=== PATIENT | female | born 1985 | race Caucasian/White ===

== ENCOUNTER → 2017-02-13 | Emergency (ER) | payer BC ==
[~2017-02-13] VITALS: Ht 170.2 cm; Wt 79.9 kg
[~2017-02-13] MED LIST: BUSPAR7.5 MG PO; CLARITIN,ALAVAR10 MG PO; COLACE100 MG PO; FLEXERIL10 MG; FLEXERIL10 MG PO; LORTAB 5-325 M1 EACH PO; MACROBID100 MG PO; MONTELUKAST SOD10 MG PO; MOTRIN800 MG; Motrin PO; NAPROSYN500 MG PO; NAPROXEN500 MG PO; OMEPRAZOLE40 M1 PO; PERCOCET 5/31 TABLET PO; PREDNISONE10 M1; Percocet 5/325,Endoc PO; TYLENOL EXTRA500 MG PO; ULTRAM ER200 MG; VICODIN,LORT1 TABLET
[2017-02-13 14:49] LABS: HEMATOCRIT 38.1 % (36.0-46.0); MCH 28.5 PG (29.0-34.0); MCHC 32.5 G/DL (30.0-36.0); MCV 87.6 FL (83-99); MEAN PLAT.VOLUME 10.4 uM^3 (9.5-12.4); PLATELET COUNT 265 K/uL (156-360); RBC DIS.WIDTH-CV 11.9 % (11.8-14.6); RBC DIS.WIDTH-SD 38.5 % (39-53); RED BLOOD COUNT 4.35 M/uL (3.80-5.20); WHITE BLOOD COUNT 10.2 K/uL (4.1-10.2)
[2017-02-13 14:59] LABS: CHLORIDE 109 mEq/L (99-109); POTASSIUM 3.9 mEq/L (3.7-5.4); SODIUM 142 mEq/L (136-147)
[2017-02-13 15:01] LABS: GLUCOSE 114 mg/dL (70-99)
[2017-02-13 15:02] LABS: ANION GAP 10 MEQ/L (2-14)
[2017-02-13 15:05] LABS: GFR ESTIMATE (CALCULATED) > 59 mL/min/
[2017-02-13 15:06] LABS: UREA NITROGEN (BUN) 11 mg/dL (9-23)
[2017-02-13 16:40] LABS: TROP-I INTERPRETATION NEGATIVE; TROPONIN-I < 0.01 ng/mL (0.0-0.30)
[2017-02-13 17:00] VITALS: BP 141/96
== END | disposition home or self-care (01) ==
LOC: EME 13:59
DX: R55 Syncope and collapse (principal); R51 Headache; Z87.891 Personal history of nicotine dependence; Z91.040 Latex allergy status; Z88.0 Allergy status to penicillin; Z88.1 Allergy status to other antibiotic agents; Z88.8 Allergy status to other drugs, medicaments and biological substances
CPT/HCPCS: 70450; 71020; 80048; 84484; 85027; 93005; 99281; 99283

== ENCOUNTER 2017-04-15 18:47 | Emergency (ER) | payer BC ==
[~2017-04-15] VITALS: Ht 170.2 cm; Wt 79.9 kg
[2017-04-15 19:28] LABS: HEMATOCRIT 37.5 % (36.0-46.0); HEMOGLOBIN 12.4 G/DL (11.9-15.5); MCH 28.4 PG (29.0-34.0); MCHC 33.1 G/DL (30.0-36.0); MCV 85.8 FL (83-99); PLATELET COUNT 274 K/uL (156-360); RBC DIS.WIDTH-CV 12.3 % (11.8-14.6); RBC DIS.WIDTH-SD 38.7 % (39-53); RED BLOOD COUNT 4.37 M/uL (3.80-5.20); WHITE BLOOD COUNT 9.6 K/uL (4.1-10.2)
[2017-04-15 19:36] LABS: ALBUMIN 4.2 g/dL (3.2-4.8); CHLORIDE 104 mEq/L (99-109); POTASSIUM 3.8 mEq/L (3.7-5.4)
[2017-04-15 19:37] LABS: SODIUM 140 mEq/L (136-147)
[2017-04-15 19:39] LABS: GLUCOSE 91 mg/dL (70-99)
[2017-04-15 19:41] LABS: TOTAL BILIRUBIN 0.3 mg/dL (0.0-1.0)
[2017-04-15 19:42] LABS: ALKALINE PHOSPHATASE 66 IU/L (3-129); CREATININE 0.8 mg/dL (0.6-1.3); GFR ESTIMATE (CALCULATED) > 59 mL/min/
[2017-04-15 19:44] LABS: AST (GOT) 13 IU/L (2-34); UREA NITROGEN (BUN) 12 mg/dL (9-23)
[2017-04-15 19:45] LABS: ALT (GPT) 15 IU/L (3-49)
[2017-04-15 19:46] LABS: LIPASE 35 U/L (1.0-51.0)
[2017-04-15 19:52] LABS: QUANTITATIVE HCG < 4.0 MIU/ML
[2017-04-15 19:57] LABS: APPEARANCE CLEAR ((CLEAR)); BILIRUBIN NEGATIVE; BLOOD NEGATIVE; COLOR STRAW ((YELLOW)); GLUCOSE (STRIP) NEGATIVE; KETONES NEGATIVE; LEUKOCYTES NEGATIVE; NITRITE NEGATIVE; PROTEIN (STRIP) NEGATIVE; SPECIFIC GRAVITY 1.008 (1.000-1.030); UCUL ADDED? NO; UROBILINOGEN 0.2 MG/DL (0.2-1.0)
[2017-04-15] MEDS ORDERED: BENTYL20 MG PO (21:08)
[2017-04-15] MEDS ORDERED: PEPCID20 MG PO (21:08)
[2017-04-15 21:45] VITALS: BP 137/73
== END 2017-04-15 21:46 | disposition home or self-care (01) ==
LOC: EME 18:47
PROVIDERS: Physician Assistant
DX: R10.9 Unspecified abdominal pain (principal); R19.7 Diarrhea, unspecified; F53 Mental and behavioral disorders associated with the puerperium, not elsewhere classified; Z83.79 Family history of other diseases of the digestive system; Z90.49 Acquired absence of other specified parts of digestive tract; Z88.0 Allergy status to penicillin; Z88.2 Allergy status to sulfonamides; Z88.8 Allergy status to other drugs, medicaments and biological substances
CPT/HCPCS: 74176; 80053; 81003; 83690; 84702; 85027; 99281; 99284